=== PATIENT | male | born 1955 | race Caucasian/White ===

== ENCOUNTER 2023-05-31 10:39 | Emergency (ER) | payer OTHER ==
[~2023-05-31] VITALS: Ht 177.8 cm; Wt 70.8 kg
[2023-05-31 12:17] LABS: HEMATOCRIT 47.7 % (39.0-48.0); HEMOGLOBIN 16.8 g/dL (13-16.00); MEAN CELL VOLUME 90.7 fL (80.0-100.00); MEAN CORPUSCULAR HGB CONC 35.3 g/dl (32.0-36.0); PLATELET COUNT 224 K/uL (150-450); RED BLOOD COUNT 5.26 M/uL (4.00-6.00); RED CELL DISTRIBUTION WIDTH 14.2 % (11.5-14.5)
[2023-05-31 13:00] LABS: ALBUMIN 4.4 gm/dL (3.4-5.0); BILIRUBIN TOTAL 4.32 mg/dL (0.3-1.2); BILIRUBIN,CONJUGATED 0.45 mg/dL (0.0-0.2); BILIRUBIN,UNCONJUGATED 3.87 mg/dL (0.0-0.6); CALCIUM 10.2 mg/dL (8.5-10.1); CREATININE SERUM 1.33 mg/dL (0.70-1.30); GFR 53.63; GLOBULINA 4.2 G/DL (2.4-3.5); POTASSIUM 3.22 mEq/L (3.5-5.1); TOTAL PROTEIN 8.6 gm/dL (6.4-8.2)
== END 2023-05-31 18:47 | disposition home or self-care (01) ==
LOC: ER 10:40
PROVIDERS: Emergency Medicine
DX: F10.10 Alcohol abuse, uncomplicated (principal); Z20.822 Contact with and (suspected) exposure to COVID-19

== ENCOUNTER 2024-01-13 11:06 | Emergency (ER) | payer OTHER ==
[~2024-01-13] VITALS: Ht 177.8 cm; Wt 72.6 kg
[2024-01-13] MEDS ORDERED: METOCLOPRAMIDE HCL 5 MG/ML VIAL ONE (13:03)
[2024-01-13] MEDS ORDERED: FAMOtidine 200mg/20ml VIAL ONE (13:04)
[2024-01-13] MEDS ORDERED: DEXTROSE 10 % IN WATER 1,000 ML IV STA (13:04)
[2024-01-13] MEDS ORDERED: LORazepam 2 MG/ML VIAL ONE (13:04)
[2024-01-13] MEDS ORDERED: THIAMINE HCL 100 MG/ML 2 ML VIAL ONE (13:05)
[2024-01-13] MEDS ORDERED: THIAMINE HCL 100 MG/ML 2 ML VIAL IM STA (13:05)
[2024-01-13] MEDS ORDERED: LORazepam 2 MG/ML VIAL IM STA (13:05)
[2024-01-13 13:29] LABS: HEMATOCRIT 41.5 % (39.0-48.0); HEMOGLOBIN 14.5 g/dL (13-16.00); MEAN CELL VOLUME 92.4 fL (80.0-100.00); MEAN CORPUSCULAR HEMOGLOBIN 32.3 pg (27.00-32.0); PLATELET COUNT 119 K/uL (150-450); RED BLOOD COUNT 4.49 M/uL (4.00-6.00); RED CELL DISTRIBUTION WIDTH 14.5 % (11.5-14.5)
[2024-01-13] MEDS ORDERED: METOCLOPRAMIDE HCL 5 MG/ML VIAL IM ONE (13:30)
[2024-01-13] MEDS ORDERED: DEXTROSE 5 % IN WATER 1,000 ML IV SCH (13:30)
[2024-01-13 14:09] LABS: ALBUMIN 4.2 gm/dL (3.4-5.0); BILIRUBIN TOTAL 4.1 mg/dL (0.3-1.2); BILIRUBIN,CONJUGATED 0.74 mg/dL (0.0-0.2); BILIRUBIN,UNCONJUGATED 3.36 mg/dL (0.0-0.6); CALCIUM 9.9 mg/dL (8.5-10.1); CREATININE SERUM 1.68 mg/dL (0.70-1.30); GFR 40.96; POTASSIUM 4.33 mEq/L (3.5-5.1); TOTAL PROTEIN 8.4 gm/dL (6.4-8.2)
[2024-01-14] MEDS ORDERED: ACETAMINOPHEN 500 MG GEL..CAP PO ONE (00:04)
[2024-01-14] MEDS ORDERED: LORazepam 1 MG TABLET PO PRN (00:15)
== END 2024-01-14 09:12 | disposition home or self-care (01) ==
LOC: ER 11:07
PROVIDERS: General Practice
DX: F10.10 Alcohol abuse, uncomplicated (principal); F41.9 Anxiety disorder, unspecified